=== PATIENT | male | born 1995 | race Caucasian/White ===

== ENCOUNTER 2017-09-07 20:53 | Emergency (ER) | payer OTHER ==
[2017-09-07 21:00] VITALS: BMI 22.6
--- NOTE | 2017-09-07 21:15 | DR.GENAD ---
HPI - PCP Primary Care Physician: NFD - HPI Comment HPI Comment: LEFT ANTERIOR CHEST AREA WITH BRUISING. LT LOWER RIB. SOB ON BREATHING. SOME ABDOMINA PAIN MAINLY LUQ. NO N/V. - Complaint/Symptoms Chief Complaint Doctors Comments: FELL OFF TREE AT WORK. Chief Complaint:: PT STATES" I WORK FOR THE [employer] I SLIDE DOWN A TREE AND CUT MY SIDE ALL THE WAY TO THE END OF MY RIBS" PT HAS ABRASION NOTED TO LT RIBS - Nurses notes reviewed Nurses Notes Review: Yes - Source History Provided: Patient - Mode of Arrival Mode of Arrival: Ambulatory - Timing Onset of Chief Complaint: 09/07/17 Came on: Suddenly - Duration Duration: Constant Duration: Hours - Severity Severity: Moderate PMH - PMH Past Medical History: No Past Surgical History: No - Family History History of Family Medical Conditions: Yes Family Medical History: Diabetes Mellitus - Social History Type of Tobacco Use: Cigarettes Does any household member use tobacco: Yes Alcohol Use: Occasionally Do you use any recreational Drugs:: No Lives With: Family Lives Where: Home - infectious screening In the last 2 months have you had wt loss of >10#?: NO Have you had fever, night sweats or hemotysis?: No Have you traveled outside the country in the last 6 months?: No Isolation: Standard ROS - Review of Systems Constitutional: No Symptoms Reported Eyes: No Symptoms Reported ENTM: No Symptoms Reported Respiratoy: Short of Breath. negative: Productive Cough, Non-Productive Cough, Wheezing, Hemoptysis Cardiovascular: Chest Pain Gastrointestinal/Abdominal: No Symptoms Reported Genitourinary: No Symptoms Reported Neurological: No Symptoms Reported Musculoskeletal: No Symptoms Reported Integumentary: No Symptoms Reported Hematologic/Lymphatic: No Symptoms Reported Endocrine: No Symptoms Reported All Other Systems: Reviewed and Negative PE - Vital Signs Vitals: Temperature 99.2 F Pulse Rate [Left Brachial] 78 Pulse Rate 71 Respiratory Rate 18 Blood Pressure [Left Arm] 122/78 Blood Pressure 133/79 O2 Sat by Pulse Oximetry 100 - General Limitations: No Limitations General Appearance: Alert - Head Head Exam: Normal Inspection - Eyes Eye exam: Normal Appearance - ENT ENT Exam: Normal External Ear Exam TM/Canal Exam: Bilateral Normal Nose Exam: Normal Nose Exam Mouth Exam: Normal Inspection Throat Exam: Tonsillar Erythema - Neck Neck Exam: Normal Inspection - Chest Chest Inspection: Symmetric Chest Wall Rise, Tenderness - Respiratory Respiratory Exam: Normal Lung Sounds Bilat, Chest Wall Tenderness Respiratory Exam: Bilateral Clear to Auscultation - Cardiovascular Cardiovascular Exam: Regular Rate, Normal Rhythm, Normal Heart Sounds - Abdominal Exam Abdominal Exam: Normal Bowel Sounds, Tenderness Abdominal Tenderness: RUQ, LUQ - Extremities Extremities Exam: Normal Inspection - Back Back Exam: Normal Inspection - Neurologic Neurological Exam: Alert, Oriented X3 - Psychiatric Psychiatric Exam: Normal Affect, Normal Mood - Skin Skin Exam: Normal Color MDM - Additional Information Additional Information Obtained From: Family - Differential Diagnosis Differential Diagnosis: CONTUSION, FRACTURE, STRAIN AND SPLEEN AND KIDNEY INJURY. Course - Treatment Treatment: SEE ORDERS. - Education/Counseling Education/Counseling: Patient, Education Educated On: Diagnosis, Needs for Follow Up ROR - XRAY XRAY Interpreted by: Radiologist XRAY Findings: REPORT DISCUSS WITH PATIENT AND FAMILY. - Diagnosis Discharge Problem: Abrasion, Chest wall pain Contusion of rib on left side Qualifiers: Encounter type: initial encounter Qualified Code(s): S20.212A - Contusion of left front wall of thorax, initial encounter Abdominal pain Qualifiers: Abdominal location: left upper quadrant Qualified Code(s): R10.12 - Left upper quadrant pain - Discharge Plan Disposition: 01 HOME, SELF-CARE Condition: Stable Prescriptions: Cyclobenzaprine HCl [FLEXERIL 10 MG *] 10 mg PO TID PRN #20 tab PRN Reason: Ibuprofen [MOTRIN TAB 600 MG *] 600 mg PO TID PRN #30 tab PRN Reason: Pain/Inflammation - Follow ups/Referrals Follow ups/Referrals: NFD,None [Primary Care Provider] - 2 days - Instructions Instructions: Abdominal Pain, Adult, [id number], Rib Contusion Additional Instructions: RETURN TO ED IF WORSE. YOU ALSO HAVE ABRASION LEFT LOWER CHEST.
[2017-09-07] MEDS ORDERED: TORADOL 60 MG VIAL ONE (21:35)
[2017-09-07] MEDS ORDERED: TORADOL 60 MG VIAL IM ONE (21:36)
--- NOTE | 2017-09-07 21:39 | RAD ---
HISTORY: Left rib injury Study: Single frontal view of the chest and 3 views of the ribs. Comparison: None Findings: The cardiomediastinal silhouette is normal. No focal consolidations, pleural effusions or pneumothora x. Osseous structures demonstrate no acute abnormality. No acute displaced rib fractures. IMPRESSION: 1. No acute displaced rib fractures. 2. No acute cardiopulmonary process. Reported By:
--- NOTE | 2017-09-07 22:08 | CT ---
CT abdomen and pelvis without contrast Indication: Left-sided abrasion after injury. Technique: CT images of the abdomen and pelvis were obtained without contrast. Automatic exposure con trol was utilized. Comparison: None. Findings: No acute fractures. The lung bases are clear. Evaluation of the abdominal pelvic viscera is limited without contrast. Accounting for this, the live r, gallbladder, spleen, stomach, duodenum, pancreas, adrenals, and kidneys are unremarkable. No signi ficant bowel thickening or dilatation of the lower GI tract is observed. No evidence for free air or free fluid. The urinary bladder is mildly distended, but otherwise unremarkable. The prostate and rec pati are unremarkable. Impression: No acute abnormality within the abdomen or pelvis, within the limitations of a noncontras t study. Reported By:
[2017-09-07 22:31] VITALS: BP 122/78
== END 2017-09-07 22:31 | disposition home or self-care (01) ==
LOC: ER 21:08
DX: S20.212A Contusion of left front wall of thorax, initial encounter (principal); R07.89 Other chest pain; R10.12 Left upper quadrant pain; W14.XXXA Fall from tree, initial encounter; Y92.69 Other specified industrial and construction area as the place of occurrence of the external cause
CPT/HCPCS: 71111; 74176; 96372; 99282; 99283; J1885